=== PATIENT | female | born 1970 | race Caucasian/White ===

== ENCOUNTER 2019-06-28 11:29 | Emergency (ER) | payer OTHER, SELFPAY ==
--- NOTE | ~2019-06-28 | XR_ITS ---
XR chest 1V portable DATE: 06/28/2019 12:04 INDICATION: Acute chest pain radiating to left arm and shoulder TECHNIQUE: Portable AP chest on 06/28/2019 at 1204 hours COMPARISON: 09/23/2003 PA and lateral views FINDINGS: Normal heart size. No hilar or mediastinal enlargement. No pulmonary infiltrate or consolidation, pleural effusion or pulmonary vascular congestion or pneumo thorax. IMPRESSION: No active cardiopulmonary disease Reviewed, dictated and finalized at location A.
--- NOTE | 2019-06-28 11:36 | ECG_ITS ---
Measurements Intervals [place] Rate: 97 P: 79 ID: [id number] QRS: 59 QRSD: 85 T: 52 QT: 307 QTc: 390 Interpretive Statements SINUS RHYTHM BASELINE ARTIFACT- I, II, III, AVR, AVL, AVF NORMAL ECG Electronically Signed On 06-28-2019 11:52:07 CDT by Hermann Verde D.O.
--- NOTE | 2019-06-28 11:40 | ED.CHESTPAIN ---
HPI - Chest Pain General Chief Complaint: Chest Pain Stated Complaint: Pain in L arm through chest and back Source: patient Mode of arrival: ambulatory Limitations: no limitations History of Present Illness HPI narrative: Pain is around the left shoulder blade, radiating to left shoulder down left arm. It does not extend beyond the elbow. Pain is sharp, moderate-severe in intensity associated with faint left upper chest discomfort. It is made worse with abducting the arm, luis a. beyond 90 degrees, deep breathing, and moving her head. It is improved by adducting the left arm or putting left hand behind her head. She denies associated nausea, SOB. She has no hx of CAD. She has chronic sciatica treated with Tylenol #3 Migraine 3 days ago, pain back of head, now mild. Related Data Home Medications Medication Instructions Recorded Confirmed acetaminophen-codeine 1 tablet PO PRN 06/28/19 06/28/19 cyclobenzaprine 10 mg PO DAILY 06/28/19 06/28/19 gabapentin 300 mg PO DAILY 06/28/19 06/28/19 sumatriptan succinate 100 mg PO PRN 06/28/19 06/28/19 Allergies Allergy/AdvReac Type Severity Reaction Status Date / Time Sulfa (Sulfonamide Allergy Intermediate hives Verified 02/16/19 08:51 Antibiotics) tramadol Allergy Intermediate TACHYACARDI Verified 02/16/19 08:51 A propoxyphene Allergy Mild CAN T Verified 06/28/19 12:26 REMEMBER meperidine Allergy Unknown HEAD ACHE, Verified 02/16/19 08:51 NAUSEA fentanyl AdvReac Unknown HEAD ACHE, Verified 02/16/19 08:51 NAUSEA Review of Systems Constitutional: Constitutional: Denies chills and Denies fever(s) Cardiovascular: Cardiovascular: Reports no additional cardiovascular complaints Respiratory: Respiratory: Denies cough and Denies wheezing Gastrointestinal: Gastrointestinal: Denies abdominal pain, Denies diarrhea, Denies nausea and Denies vomiting Musculoskeletal: Musculoskeletal: Denies myalgias and Denies joint swelling Neurologic: Denies focal weakness and Denies numbness PMFSH Past Medical History Medical History (Updated 06/29/19 @ 05:19 by Gil Cardozo MD) Migraine Sciatica Exam Narrative: Exam Narrative: Appears to be in pain; turned to her left side, arm adducted. Pt continues to hold arm adducted to chest when she moves from this position. Const: Orientation/consciousness: patient oriented x3 HENMT: Head: normal to inspection Neck: Neck: no lymphadenopathy Other: Tender left medial trapezius. Full neck extension limited by causing pain in left side of neck and into the left arm. Spurling's test equivocal. Back/Spine/Pelvis: Other: Tender in the left rhomboid, infra and supraspinatus and trapezius retion. Unable to abduct left shoulder >90 degrees secondary to increased pain. . Skin: General skin exam: normal color Rashes: no rashes Neuro: Other: Resisted internal, ext. left shoulder rotation and supraspinatus empty can testing is positive for pain but with 5+ strength. 5+ biceps, triceps, wrist extension, index-thumb pinch strength No u.e. numbness. Psych: Affect: No normal affect (anxious) Course Vital Signs Vital signs: Vital Signs Temperature 36.7 C 06/28/19 11:45 Pulse Rate 97 06/28/19 11:45 Respiratory Rate 20 06/28/19 11:45 Blood Pressure 134/90 06/28/19 11:45 Pulse Oximetry 100 06/28/19 11:45 Temperature 36.7 C 06/28/19 13:36 Pulse Rate 89 06/28/19 13:36 Respiratory Rate 16 06/28/19 13:36 Blood Pressure 135/84 06/28/19 13:36 Pulse Oximetry 99 06/28/19 13:36 MDM - Chest Pain MDM Narrative Medical decision making narrative: Tenderness of left thoracic muscles and limited abduction suggests muscle strain; lack of increased pain with stress testing is not consistent with this. Pain made worse with neck extension and hx of sciatica suggests cervical nerve root compression. Pt needs MRI of C spine to sort out. Because of degree of pain and possible benefit from
[2019-06-28 11:45] VITALS: BP 134/90; PULSE 97; RESP 20; TEMP 36.7; O2SAT 100
[2019-06-28 11:50] VITALS: PULSE 97
[2019-06-28 12:03] LABS: Hematocrit 35.5 % (35.0-49.0); Mean Corpuscular HGB Conc 33.8 g/dL (32.0-36.0); Mean Corpuscular Hemoglobin 31.9 pg (27.0-31.0); Mean Corpuscular Volume 94.4 fL (78.0-102.0); Mean Platelet Volume 9.5 fl (9.2-11.8); Platelet Count Result 267 K/mm3 (150-420); Red Blood Count 3.76 M/mm3 (4.20-5.40); Red Cell Distribution Width 12.8 % (11.6-14.4); White Blood Count 3.8 K/mm3 (4.8-10.8)
[2019-06-28 12:18] LABS: D Dimer 0.24 mg/L (0.19-0.50)
[2019-06-28 12:19] LABS: Band Neutrophils Percent 0 % (0-6); Basophils Percent Manual 0 % (0-1); Eosinophils Absolute Manual 0.03 K/mm3 (0.02-0.5); Eosinophils Percent Manual 1 % (1-6); Lymphocytes Absolute Manual 1.48 K/mm3 (1.1-4.5); Lymphocytes Percent Manual 39 % (18-44); Monocytes Absolute Manual 0.41 K/mm3 (0.1-0.90); Monocytes Percent Manual 11 % (3-9); Neutrophils Absolute Manual 1.86 K/mm3 (1.7-7.2); Neutrophils Percent Manual 49 % (46-73); Total Cells Counted 100
[2019-06-28 12:20] LABS: Platelet Estimate Adequate (Adequate)
[2019-06-28 12:27] LABS: Anion Gap 12.8 mmol/L (7-16); Blood Urea Nitrogen 12 mg/dL (7-18); Calcium 8.9 mg/dL (8.5-10.1); Carbon Dioxide 27 mmol/L (21-32); Chloride 105 mmol/L (98-108); Estimated CRCL calculation 70 ml/min; Estimated Glomerular Filt Rate > 60; Glucose 101 mg/dL (70-99); Magnesium 1.9 mg/dL (1.8-2.4); Osmolality Calculated 291 mOsm/kg (285-295); Potassium 3.8 mmol/L (3.5-5.1); Sodium 141 mmol/L (136-145)
[2019-06-28 12:28] LABS: Troponin I < 0.02 ng/mL (0.00-0.056)
[2019-06-28] MEDS: KETOROLAC (*BKC) 60 MG/2 ML VIAL IM (12:28)
--- NOTE | 2019-06-28 12:45 | PC.NURSE ---
Report to Terry Nuñez
[2019-06-28 13:36] VITALS: BP 135/84; PULSE 89; RESP 16; TEMP 36.7; O2SAT 99
== END 2019-06-28 13:38 | disposition home or self-care (01) ==
PROVIDERS: Emergency Provider Family Medicine
DX: M54.9 Dorsalgia, unspecified (principal); M79.603 Pain in arm, unspecified
CPT/HCPCS: 36415; 71045; 80048; 83735; 84484; 85025; 85380; 93005; 96372; 99284; J1885

== ENCOUNTER 2020-08-14 17:36 | Emergency (ER) | payer BC, SELFPAY ==
--- NOTE | ~2020-08-14 | XR_ITS ---
EXAMINATION: XR ribs LT 2V DATE: 08/14/2020 18:04 INDICATION: Anterolateral left rib pain post fall TECHNIQUE: 3 views of the left ribs were obtained. COMPARISON: Chest radiograph dated 06/28/2019 FINDINGS: Minimally displaced anterolateral left sixth rib fracture. No other rib fractures identified. Visuali zed portions of the lungs are clear with no airspace opacities, pulmonary edema, pleural effusion or pneumothorax. Cardiomediastinal silhouette is normal. Mild thoracic levocurvature with mild spondylos is. Severe disc height loss at L1-L2. IMPRESSION: 1. Minimally displaced anterolateral left sixth rib fracture. Reviewed, dictated and finalized at location A.
[2020-08-14 17:43] VITALS: BP 115/80; PULSE 90; RESP 16; TEMP 36.7; O2SAT 98
--- NOTE | 2020-08-14 18:20 | ED.GENADULT ---
HPI - General Adult General Chief complaint: Back Pain/Injury Stated complaint: left side rib back pain Time Seen by Provider: 08/14/20 18:20 Source: patient and RN notes reviewed Mode of arrival: ambulatory Limitations: no limitations History of Present Illness HPI narrative: 50 year old female who presents to [facility] with complaints of mowing on the 06 of August with a push mower and she stepped into a hole and feel onto her left side with elbow hitting her into her left rib area. Patient states that she was jumped on by dog onto her left rib area on Wednesday which has increased her pain with intermittent shortness of breath and increase pain when she takes a deep breath.Patient states that she also has pain when she raises her left arm in the left rib area. Patient has no noted redness, swelling or bruising alson left rib area or lateral chest area. MD complaint: left rib pain Onset (ago): day(s) (since August 06) Location: chest (lateral left) Radiation: back Severity: severe Severity scale (1-10): 8 Quality: aching and sharp Pain Consistency: constant Relieving factors: rest Exacerbating factors: movement and other (deep inspiration) Treatments prior to arrival: other (takes prn pain medication for her back) Related Data Home Medications Medication Instructions Recorded Confirmed acetaminophen-codeine 1 tablet PO PRN 06/28/19 08/14/20 cyclobenzaprine 10 mg PO DAILY 06/28/19 08/14/20 gabapentin 300 mg PO DAILY 06/28/19 08/14/20 Allergies Allergy/AdvReac Type Severity Reaction Status Date / Time Sulfa (Sulfonamide Allergy Intermediate hives Verified 08/14/20 17:59 Antibiotics) tramadol Allergy Intermediate TACHYACARDI Verified 08/14/20 17:59 A propoxyphene Allergy Mild CAN T Verified 08/14/20 17:59 REMEMBER meperidine Allergy Unknown HEAD ACHE, Verified 08/14/20 17:59 NAUSEA fentanyl AdvReac Unknown HEAD ACHE, Verified 08/14/20 17:59 NAUSEA Review of Systems Review of Systems: Narrative: CONSTITUTIONAL: Denies fever, chills, or sweats. EYES: Denies visual changes, redness, or discharge. ENT: Denies rhinorrhea, congestion, sore throat, or otalgia. CARDIOVASCULAR: positive pain to left lower lateral chest pain,no palpitations, or edema. RESPIRATORY: Denies cough acute dyspnea.reports pain with deep inspirations and some movements GASTROINTESTINAL: Denies abdominal pain, nausea, vomiting, or diarrhea. GENITOURINARY: Denies dysuria or hematuria. SKIN: Denies rash or itching. MUSCULOSKELETAL: Denies back pain, joint pain, or myalgia. NEUROLOGIC: Denies headache, numbness, or weakness. PSYCHIATRIC: Positive history of anxiety or depression. All systems reviewed & are unremarkable except as noted in HPI and below PMFSH Past Medical History Medical History (Updated 08/23/20 @ 11:02 by Eli Riggins NP) Anxiety and depression Arthritis Atopic eczema Migraine Sciatica Urinary tract bacterial infections Surgical History Surgical History (Updated 08/23/20 @ 10:55 by Eli Riggins NP) H/O section H/O: hysterectomy Hx of spinal surgery Family History Family History (Updated 08/23/20 @ 10:58 by Eli Riggins NP) Father Cerebrovascular accident Hypertension Diabetes mellitus Sibling Hypertension Diabetes mellitus Grandparent Cancer Mother Cancer Social History Social History (Updated 08/23/20 @ 10:59 by Eli Riggins NP) Smoking status: Never smoker Alcohol intake: current Substance use: current Substance use type: opiates Last use: pain medication for chronic back pain Living arrangements: with family Gender identity (if verbalized by the patient): Female Comments At time of signature, agree with nursing past medical, surgical, social and family history. There is no relevant family history pertinent to the presenting complaint Exam Narrative: Exam Narrative: GENERAL: Well-appearing, well-nourished, and in no acute d
== END 2020-08-14 19:08 | disposition home or self-care (01) ==
PROVIDERS: Emergency Provider Registered Nurse; PCP Physician Assistant
DX: S22.32XA Fracture of one rib, left side, initial encounter for closed fracture (principal); W17.2XXA Fall into hole, initial encounter; M19.90 Unspecified osteoarthritis, unspecified site
CPT/HCPCS: 71100; 99213; G0463

== ENCOUNTER 2020-12-10 16:33 | Emergency (ER) | payer BC, SELFPAY ==
--- NOTE | ~2020-12-10 | CT_ITS ---
EXAMINATION: CT abdomen pelvis w con DATE: 12/10/2020 21:39 INDICATION: Right upper quadrant abdominal pain, nausea and vomiting TECHNIQUE: Computed tomography (CT) of the abdomen and pelvis was performed with 100 cc Omnipaque 350 intravenous contrast. Automated exposure control and iterative reconstruction technique were employe d. Exam dose: 548.66 mGy-cm total exam DLP. COMPARISON: 06/26/2017 CT abdomen pelvis FINDINGS: Mild left lower lobe atelectasis. Normal heart size. No pericardial or pleural effusion. Diffuse hepatic steatosis. No hepatic, splenic, pancreatic, adrenal space-occupying mass lesion. No b ile duct or pancreatic duct dilatation. 4 mm right renal cyst. No urinary tract calculus or hydroureteronephrosis. Normal caliber of the abdominal aorta. No intraperitoneal or retroperitoneal or pelvic mass lesion or adenopathy or ascites. Status post hysterectomy. The urinary bladder is unremarkable. No evidence of appendicitis. Minimal: diverticulosis; no CT evidence of diverticulitis. No bowel obst ruction, bowel wall thickening, pneumatosis or intraperitoneal free air. Small fat-containing umbilical hernia. Multilevel degenerative disc disease of the lumbar spine and lower thoracic spine. No suspicious oste olytic or osteoblastic lesion is noted. IMPRESSION: Diffuse hepatic steatosis Status post hysterectomy Minimal diverticulosis of the colon; no CT evidence of diverticulitis Reviewed, dictated and finalized at Location A. Reviewed, dictated and finalized at location A.
--- NOTE | 2020-12-10 17:53 | ED.ABDPAIN ---
HPI - Abdominal Pain General Chief Complaint: Abdominal Pain Stated Complaint: R side pain Time Seen by Provider: 12/10/20 17:53 Source: patient Mode of arrival: ambulatory Limitations: no limitations History of Present Illness HPI narrative: 50-year-old woman comes in today complaining of right upper abdominal pain that started approximately 4 days ago. Patient states that it was intermittent at 1st but now seems to be more constant. It is made worse after eating usually within minutes and is associated with nausea. She states that she has felt feverish and had some chills but denies a measured fever and she has had no diarrhea, dysuria, hematuria, discharge, cough or cold symptoms, sore throat or rhinorrhea. She denies any sick expo Pertinent past history: none Onset (ago): day(s) (4) Pain Consistency: constant Location: RUQ Severity: severe Quality: sharp Radiation: none Migration to: no migration Exacerbating factors: eating Relieving factors: nothing Associated symptoms: nausea, vomiting, fever ( Feverish) and chills Related Data Home Medications Medication Instructions Recorded Confirmed acetaminophen-codeine 1 tablet PO PRN 06/28/19 12/10/20 cyclobenzaprine 5 mg PO HS 06/28/19 12/10/20 gabapentin 300 mg PO BID 06/28/19 12/10/20 Allergies Allergy/AdvReac Type Severity Reaction Status Date / Time Sulfa (Sulfonamide Allergy Intermediate hives Verified 12/10/20 19:37 Antibiotics) tramadol Allergy Intermediate TACHYACARDI Verified 12/10/20 19:37 A propoxyphene Allergy Mild CAN T Verified 12/10/20 19:37 REMEMBER meperidine Allergy Unknown HEAD ACHE, Verified 12/10/20 19:37 NAUSEA fentanyl AdvReac Unknown HEAD ACHE, Verified 12/10/20 19:37 NAUSEA Review of Systems Review of Systems: All systems reviewed & are unremarkable except as noted in HPI and below Constitutional: Constitutional: Reports chills and Reports fever(s) Eyes: Eyes: Denies change in vision and Denies photophobia ENT: Denies nasal congestion and Denies sore throat Cardiovascular: Cardiovascular: Denies chest pain and Denies radiating jaw, neck or arm pain Respiratory: Respiratory: Denies cough, Denies dyspnea and Denies wheezing Gastrointestinal: Gastrointestinal: Reports abdominal pain, Denies diarrhea, Reports nausea and Reports vomiting Genitourinary: Genitourinary: Denies hematuria, Denies nocturia and Denies dysuria Musculoskeletal: Musculoskeletal: Denies back pain, Denies arthralgias and Denies joint swelling Integumentary/Breasts: Skin/Breast: Denies pruritus, Denies erythema and Denies rash Neurologic: Denies focal weakness, Denies numbness and Denies weakness Hematologic/Lymphatic: Hematologic/Lymphatic: Denies easy bleeding and Denies easy bruising Allergic/Immunologic: Allergic/Immunologic: Denies lip swelling and Denies throat swelling PMFSH Past Medical History Medical History Anxiety and depression Arthritis Atopic eczema Migraine Sciatica Urinary tract bacterial infections Surgical History Surgical History H/O section H/O: hysterectomy Hx of spinal surgery Family History Family History (Updated 08/23/20 @ 10:58 by Eli Riggins NP) Father Cerebrovascular accident Hypertension Diabetes mellitus Sibling Hypertension Diabetes mellitus Grandparent Cancer Mother Cancer Social History Social History Smoking status: Never smoker Alcohol intake: current Substance use: current Substance use type: opiates Last use: pain medication for chronic back pain Gender identity (if verbalized by the patient): Female Exam Const: General: healthy appearing and alert Orientation/consciousness: patient oriented x3 Limitations: no limitations Other: moderate acute distress. HENMT: H
[2020-12-10 18:15] VITALS: BP 130/86; PULSE 96; RESP 20; TEMP 36.9; O2SAT 93
[2020-12-10 18:15] LABS: Add Urine Microscopic? YES; Appearance Urine Clear (Clear); Basophils Absolute Auto 0.02 K/mm3 (0.00-0.10); Basophils Percent Auto 0.2 % (0.0-1.0); Bilirubin Urine Negative (Negative); Blood Urine Negative (Negative); Color Urine Light Yellow (Yellow); Eosinophils Absolute Auto 0.01 K/mm3 (0.02-0.50); Eosinophils Percent Auto 0.1 % (1.0-6.0); Glucose Urine UA Negative (Negative); Hematocrit 38.7 % (35.0-49.0); Hemoglobin 12.2 g/dL (12.0-15.0); Immature Granulocyte Absolute 0.04 K/mm3 (0.00-0.00); Immature Granulocyte Percent A 0.4 % (0.0-0.0); Ketones Urine Negative (Negative); Leukocyte Esterase Ur 1+ LEU/UL (Negative); Lymphocytes Percent Auto 7.6 % (18.0-42.0); Mean Corpuscular HGB Conc 31.5 g/dL (32.0-36.0); Mean Corpuscular Hemoglobin 30.8 pg (27.0-31.0); Mean Corpuscular Volume 97.7 fL (78.0-102.0); Monocytes Absolute Auto 0.19 K/mm3 (0.10-0.90); Monocytes Percent Auto 2.1 % (2.0-11.0); Neutrophils Absolute Auto 8.2 K/mm3 (1.7-7.2); Neutrophils Percent Auto 89.6 % (50.0-70.0); Nitrate Urine Negative (Negative); Platelet Count Result 333 K/mm3 (150-420); Protein Urine Negative (Negative); Red Blood Count 3.96 M/mm3 (4.20-5.40); Red Cell Distribution Width 13.4 % (11.6-14.4); Specific Grav Ur <= 1.005 (1.010-1.020); Urobilinogen Urine 0.2 mg/dL (0.2-1.0); White Blood Count 9.2 K/mm3 (4.8-10.8)
[2020-12-10 18:23] LABS: Bacteria Urine Trace /hpf; RBC Urine 0-2 /hpf (0-2); WBC Urine 0-3 /hpf (0-3)
[2020-12-10] MEDS: SODIUM CHLORIDE 0.9% IV 1,000 ML 999 ML IV CONT (18:27)
[2020-12-10] MEDS: ONDANSETRON INJ 4 MG/2 ML VIAL IV PUSH (18:28)
[2020-12-10] MEDS: HYDROmorphone HCL INJ (*CRX) 2 MG/ML VIAL 0.5 MG IV PUSH ×2 (18:28→22:24)
[2020-12-10 18:29] LABS: Alanine Aminotransferase 30 U/L (14-59); Albumin Level 3.8 g/dL (3.4-5.0); Alkaline Phosphatase 109 U/L (46-116); Anion Gap 9 mmol/L (8-16); Aspartate Amino Transferase 34 U/L (15-37); Bilirubin,Total 0.2 mg/dL (0.00-1.00); Blood Urea Nitrogen 8 mg/dL (7-18); Carbon Dioxide 31 mmol/L (21-32); Chloride 104 mmol/L (98-108); Estimated Glomerular Filt Rate > 60; Glucose 131 mg/dL (70-99); Lipase 60 U/L (73-393); Osmolality Calculated 298 mOsm/kg (285-295); Sodium 144 mmol/L (136-145)
[2020-12-10 22:36] VITALS: BP 134/94; PULSE 95; RESP 20; TEMP 36.5; O2SAT 97
== END 2020-12-10 22:37 | disposition home or self-care (01) ==
PROVIDERS: Emergency Provider Emergency Medicine; PCP Physician Assistant
DX: R10.11 Right upper quadrant pain (principal); R82.81 Pyuria
CPT/HCPCS: 36415; 74177; 80053; 81001; 83605; 83690; 85025; 87040; 87086; 96361; 96374; 96375; 96376; 99283; 99284; J1170; J2405; J7030; Q9967

== ENCOUNTER 2020-12-11 11:02 | Outpatient (CLI) | payer BC, SELFPAY ==
--- NOTE | ~2020-12-11 | US_ITS ---
EXAMINATION: US right upper quadrant EXAM DATE: 12/11/2020 11:31 INDICATION: R10.11 - Right upper quadrant pain. TECHNIQUE: Multiple grayscale and Doppler images of the abdomen right upper quadrant were obtained (b y a technologist who performed the scan) and subsequently reviewed. There is no prior study for kuldip michaud. FINDINGS: The pancreatic head and body are normal in appearance. The pancreatic tail is not visualized. The l iver has normal echogenicity and contour. There are no focal liver lesions identified. There is no evidence of intrahepatic biliary duct dilation. Portal venous flow was seen in the hepatopedal, nor mal direction and has normal Doppler waveform. No right-sided hydronephrosis. Common bile duct measures 4 mm, which is normal. The gallbladder wall is normal in thickness, with ex pected amount of distention. No sonographic evidence of pericholecystic fluid. There is no cholelit hiases. Technologist performing exam reports patient did not demonstrate sonographic Martinez's sign. Please note that this sign is less reliable in patients who have received pain medication. IMPRESSION: 1. Unremarkable abdominal ultrasound exam. Reviewed, dictated and finalized at location A.
== END 2020-12-11 11:03 | disposition home or self-care (01) ==
LOC: CHSIMG 11:04
PROVIDERS: PCP Physician Assistant; Visit Provider Emergency Medicine
DX: R10.11 Right upper quadrant pain (principal)
CPT/HCPCS: 76705

== ENCOUNTER 2021-03-20 09:40 | Emergency (ER) | payer BC, SELFPAY | END 2021-03-20 09:52 | disposition left against medical advice (07) | LOC: ANHED 09:46 | DX: Z53.21 Procedure and treatment not carried out due to patient leaving prior to being seen by health care provider (principal) | CPT/HCPCS: 99199 ==

== ENCOUNTER 2021-03-20 10:27 | Emergency (ER) | payer BC, SELFPAY ==
--- NOTE | ~2021-03-20 | XR_ITS ---
EXAMINATION: [id number] EXAM DATE: 03/20/2021 10:58 INDICATION: Initial encounter following injury, with pain of the chest, right ribs. Fell last night . TECHNIQUE: Frontal projection of the upper right ribs, frontal projection of the lower right ribs, ob lique projection of the right ribs, frontal chest x-ray(s) for interpretation. Comparison is made to prior examination from 06/28/2019. FINDINGS: There is acute closed posttraumatic essentially nondisplaced right 5th rib fracture anterol aterally. This finding has been indicated, marked on the examination for review, clinical correlation . Calcified right axillary granuloma. No confluent consolidation, pneumothorax or pleural effusion s uspected. Small amount of apical scarring. Cardiomediastinal silhouette is normal. IMPRESSION: Acute right 5th rib fracture. No pneumothorax. Reviewed, dictated and finalized at location A. ETING PRODUCTION COORDINATOR
--- NOTE | ~2021-03-20 | XR_ITS ---
EXAMINATION: XR humerus RT DATE: 03/20/2021 10:58 INDICATION: Right humeral pain post fall TECHNIQUE: Internal and axillary rotated views of the right humerus were obtained. COMPARISON: None. FINDINGS: Alignment is normal. No fracture. Joint space at the right shoulder and elbow appear normal. Calcifie d nodule at the right axilla likely calcified lymph node related to old granulomatous disease. Soft t issues are otherwise unremarkable. IMPRESSION: 1. No acute osseous abnormality. Reviewed, dictated and finalized at location A. SENIOR OFFICER
[2021-03-20 10:36] VITALS: BP 137/81; PULSE 107; RESP 16; TEMP 37.2; O2SAT 97
--- NOTE | 2021-03-20 11:08 | ED.UPPEXIN ---
HPI - Extremity Injury (Upper) General Chief Complaint: Extremity Injury, Upper Stated Complaint: right side rib and arm injury Time Seen by Provider: 03/20/21 11:08 Source: patient and RN notes reviewed Mode of arrival: ambulatory Limitations: no limitations History of Present Illness HPI narrative: Mauro is a 50-year-old female patient who ambulated into the [facility]. Patient states she tripped over her dogs last night landed on her right side. She is complaining of right upper arm pain and right rib pain she is guarding the area. She is been taken Tylenol Advil and Flexeril for pain. Related Data Home Medications Medication Instructions Recorded Confirmed gabapentin 600 mg PO TID 03/20/21 03/20/21 Allergies Allergy/AdvReac Type Severity Reaction Status Date / Time Sulfa (Sulfonamide Allergy Intermediate Swelling Verified 03/20/21 11:16 Antibiotics) of Lip/Tongue/Throat tramadol Allergy Intermediate TACHYACARDI Verified 03/20/21 11:16 A propoxyphene Allergy Mild CAN T Verified 03/20/21 11:16 REMEMBER meperidine Allergy Unknown HEAD ACHE, Verified 03/20/21 11:16 NAUSEA fentanyl AdvReac Unknown HEAD ACHE, Verified 03/20/21 11:16 NAUSEA Review of Systems Review of Systems: CONSTITUTIONAL: Denies body aches, fever, chills, or sweats. EYES: Denies visual changes, redness, or discharge. ENT: Denies rhinorrhea, congestion, sore throat, or otalgia. CARDIOVASCULAR: Denies chest pain, palpitations, or edema. RESPIRATORY: Denies cough or dyspnea. GASTROINTESTINAL: Denies abdominal pain, nausea, vomiting, or diarrhea. GENITOURINARY: Denies dysuria or hematuria. SKIN: Denies rash, itching, or wounds. MUSCULOSKELETAL: Denies back pain, joint pain, or myalgia.+ right rib pain, + right upper arm pain NEUROLOGIC: Denies headache, numbness, tingling, or weakness. PSYCH: Denies depression or anxiety. All systems reviewed & are unremarkable except as noted in HPI and below PMFSH Past Medical History Medical History Anxiety and depression Arthritis Atopic eczema Migraine Sciatica Urinary tract bacterial infections Surgical History Surgical History H/O section H/O: hysterectomy Hx of spinal surgery Family History Family History Father Cerebrovascular accident Hypertension Diabetes mellitus Sibling Hypertension Diabetes mellitus Grandparent Cancer Mother Cancer Social History Social History Smoking status: Never smoker Alcohol intake: current Substance use: current Substance use type: opiates Last use: pain medication for chronic back pain Gender identity (if verbalized by the patient): Female Exam Narrative: GENERAL: Well-appearing, well-nourished, and in no acute distress. HEAD: Normocephalic, atraumatic. EYES: EOMI. No redness or drainage. Conjunctivae normal. ENT: Mucous membranes pink and moist. Nares clear. No rhinorrhea. TMs normal bilaterally. Throat normal. Uvula midline. NECK: Normal AROM. Supple. No lymphadenopathy. CHEST: No respiratory distress. Clear to auscultation. MUSCULOSKELETAL: No bony tenderness. EXTREMITIES: Normal range of motion. No edema. pain with palpation right upper arm, pain to right tib area with palpation and movement. SKIN: Warm, dry, no rash. Capillary refill normal. Normal skin turgor. NEURO: No focal deficits. Alert and oriented x3. Gait steady. PSYCH: Normal affect. No signs of depression or anxiety. Course Vital Signs Vital signs: Vital Signs Temperature 37.2 C 03/20/21 10:36 Pulse Rate 107 H 03/20/21 10:36 Respiratory Rate 16 03/20/21 10:36 Blood Pressure 137/81 03/20/21 10:36 Pulse Oximetry 97 03/20/21 10:36 Temperature 37.2 C 03/20/21 10:36 Pulse
== END 2021-03-20 11:35 | disposition home or self-care (01) ==
PROVIDERS: Emergency Provider Nurse Practitioner Family; PCP Physician Assistant
DX: S22.31XA Fracture of one rib, right side, initial encounter for closed fracture (principal); S40.021A Contusion of right upper arm, initial encounter; W01.0XXA Fall on same level from slipping, tripping and stumbling without subsequent striking against object, initial encounter
CPT/HCPCS: 71101; 73060; 99214; G0463

== ENCOUNTER 2023-02-03 08:45 | Outpatient (CLI) | payer BC, SELFPAY ==
--- NOTE | ~2023-02-03 | US_ITS ---
Limited Abdominal Sonogram: Real-time sonographic imaging of the right upper quadrant was performed. Clinical History: Right upper quadrant pain Findings: The liver appears mildly echogenic, with no evidence of mass lesion or bile duct dilatatio n. Main portal vein demonstrates normal direction of flow. The gallbladder is well distended, and kayley ears normal with no evidence of gallstone or wall thickening. The common bile duct measures 4 mm. Th e visualized pancreas, aorta, and IVC are unremarkable. Impression: Probable diffuse fatty infiltration of the liver. Reviewed, dictated and finalized at location M. Impression: Probable diffuse fatty infiltration of the liver.
== END 2023-02-03 08:46 | disposition home or self-care (01) ==
LOC: CHSIMG 08:46
PROVIDERS: PCP Physician Assistant; Visit Provider Physician Assistant
DX: R10.11 Right upper quadrant pain (principal)
CPT/HCPCS: 76705

== ENCOUNTER 2023-11-09 15:10 | Outpatient (CLI) | payer BC, SELFPAY ==
--- NOTE | ~2023-11-09 | XR_ITS ---
EXAMINATION: XR chest 2V 11/09/2023 15:29 INDICATION: Acute bronchitis. PROCEDURE: 2 view chest COMPARISON: Comparison to multiple prior studies sequentially, with oldest reviewed study dated 09/2003. FINDINGS: The lungs are clear. The cardiomediastinal silhouette is within normal limits. There are no pleural effusions. There is no pneumothorax suspected. IMPRESSION: 1: NO ACUTE CARDIOPULMONARY DISEASE. Reviewed, dictated and finalized at location B.
== END 2023-11-09 15:11 | disposition home or self-care (01) ==
LOC: CHSIMG 15:13
PROVIDERS: PCP Physician Assistant; Visit Provider Physician Assistant
DX: J20.8 Acute bronchitis due to other specified organisms (principal)
CPT/HCPCS: 71046

== ENCOUNTER 2023-11-24 12:55 | Emergency (ER) | payer BC, SELFPAY ==
[2023-11-24 13:01] VITALS: BP 143/86; PULSE 108; RESP 18; TEMP 36.3; O2SAT 97
--- NOTE | 2023-11-24 13:04 | ED.BACK ---
HPI - Back Pain/Injury General Chief Complaint: Back Pain/Injury Stated Complaint: back pain Source: patient Mode of arrival: ambulatory Limitations: no limitations History of Present Illness HPI Narrative: 53-year-old female with a history of anxiety / depression, arthritis, sciatica status post back surgery x2, eczema presents to the ED with a 2 day history of -- low back pain which radiates down the back of her right thigh. She has a prior history of laminectomy and chronic low back pain. She has a history of epidural shots. The patient is due to see pain management in January. Patient has had no recent trauma. Patient has increasing cough -- cough with mucopurulent sputum for which she has been on Zithromax without significant improvement. MD elicited complaint: back pain Pertinent past history: prior back pain and back surgery Onset (ago): day(s) ( Two days) Timing: constant Severity: severe Similar Symptoms Previously: Yes Quality: aching Location: lumbar spine Radiation: right upper leg and right leg below the knee Exacerbating factors: movement Relieving factors: immobilization Associated symptoms: numbness and difficulty walking Work related injury: No Related Data Home Medications Medication Instructions Recorded Confirmed gabapentin 600 mg tablet 600 mg PO TID 03/20/21 03/20/21 Allergies Allergy/AdvReac Type Severity Reaction Status Date / Time Sulfa (Sulfonamide Allergy Intermediate Swelling Verified 03/20/21 11:16 Antibiotics) of Lip/Tongue/Throat tramadol Allergy Intermediate TACHYACARDI Verified 03/20/21 11:16 A propoxyphene Allergy Mild CAN T Verified 03/20/21 11:16 REMEMBER meperidine Allergy Unknown HEAD ACHE, Verified 03/20/21 11:16 NAUSEA fentanyl AdvReac Unknown HEAD ACHE, Verified 03/20/21 11:16 NAUSEA Review of Systems Review of Systems: All systems reviewed & are unremarkable except as noted in HPI and below Constitutional: Constitutional: Reports as per HPI and Reports no additional constitutional complaints Eyes: Eyes: Reports as per HPI and Reports no additional eye complaints ENT: Reports system reviewed and no additional complaints, except as documented and Reports as per HPI Cardiovascular: Cardiovascular: Reports as per HPI and Reports no additional cardiovascular complaints Respiratory: Respiratory: Reports as per HPI and Reports cough Gastrointestinal: Gastrointestinal: Reports as per HPI and Reports no additional gastrointestinal complaints Genitourinary: Genitourinary: Reports no additional female genitourinary complaints and Reports as per HPI Musculoskeletal: Musculoskeletal: Reports no additional musculoskeletal complaints and Reports back pain Comments: low back pain with right-sided sciatica knee joint pain Integumentary/Breasts: Skin/Breast: Reports system reviewed and no additional complaints, except as docu and Reports as per HPI Neurologic: Reports system reviewed and no additional complaints, except as documented and Reports as per HPI Psychiatric: Psychiatric: Reports no additional psychiatric complaints and Reports as per HPI Endocrine: Endocrine: Reports no additional endocrine complaints and Reports as per HPI Hematologic/Lymphatic: Hematologic/Lymphatic: Reports no additional hematologic/lymphatic complaints and Reports as per HPI Allergic/Immunologic: Allergic/Immunologic: Reports no additional allergic/immunologic complaints and Reports as per HPI PMFSH Past Medical History Medical History Anxiety and depression Arthritis Atopic eczema Migraine Sciatica Urinary tract bacterial infections Surgical History Surgical History H/O section H/O: hysterectomy Hx of spinal surgery Family History Family History Father Cerebrovascular ac
[2023-11-24] MEDS: HYDROmorphone HCL INJ (*CRX) 2 MG/ML VIAL 0.5 MG IM (13:41)
[2023-11-24] MEDS: ONDANSETRON HCL ODT 4 MG TABLET PO (13:41)
[2023-11-24] MEDS: HYDROcodone/acetaminophen (*CRX) 5-325 MG TABLET 1 TAB PO (14:22)
[2023-11-24 14:36] VITALS: BP 122/90; PULSE 83; RESP 16; TEMP 36.5; O2SAT 96
== END 2023-11-24 14:45 | disposition home or self-care (01) ==
PROVIDERS: Emergency Provider Internal Medicine Critical Care Medicine; PCP Physician Assistant
DX: M54.41 Lumbago with sciatica, right side (principal)
CPT/HCPCS: 96372; 99283; A9270; J1170

== ENCOUNTER 2024-06-01 11:07 | Outpatient (CLI) | payer MEDICARE, BC, SELFPAY ==
--- NOTE | ~2024-06-01 | MM_ITS ---
EXAMINATION: MM screening autumn BI w rolo HISTORY: Screening TECHNIQUE: Craniocaudal and mediolateral oblique 3-D tomosynthesis images were obtained and synthetic 2-D images were generated. CAD analysis was submitted and interpreted. COMPARISON: Comparison to multiple prior studies sequentially, with oldest reviewed study dated 09/08. BREAST PARENCHYMAL COMPOSITION: Not dense: There are scattered areas of fibroglandular density. FINDINGS: There is no evidence of suspicious mass, calcification, or architectural distortion to sugg est malignancy in either breast. There has been no suspicious interval change. IMPRESSION: 1. No mammographic evidence of malignancy. 2. Recommend routine screening mammography in one year. BI-RADS Category 1: Negative Reviewed, dictated and finalized at [facility]
== END 2024-06-01 11:08 | disposition home or self-care (01) ==
LOC: MICIMG 11:08
PROVIDERS: PCP Physician Assistant; Visit Provider Obstetrics & Gynecology
DX: Z12.31 Encounter for screening mammogram for malignant neoplasm of breast (principal)
CPT/HCPCS: 77063; 77067